=== PATIENT | male | born 2000 | race Caucasian/White ===

== ENCOUNTER 2020-07-13 17:17 | Observation (INO) | payer BC ==
[2020-07-13 17:42] LABS: #Lymphocytes 0.5 thou/uL (1.20-3.40); #Monocytes 0.4 thou/uL (0.11-0.59); #Neutrophils 7.3 thou/uL (1.40-6.50); %Basophils 0.1 % (0.0-1.0); %Eosinophils 0.5 % (0.0-10.0); %Lymphocytes 5.7 % (28.0-48.0); %Monocytes 4.6 % (0.0-4.0); %Neutrophils 89.1 % (31.0-61.0); Hemoglobin 15.8 g/dL (14.0-18.0); Mean Corpuscular HGB CONC 33.7 g/dL (32.0-36.0); Mean Corpuscular Hemoglobin 30.7 pg (25.0-35.0); Platelet Count 196 thou/uL (130-400); RBC Distribution Width 12.6 % (11.5-14.5); Red Blood Cell (RBC) Count 5.15 mill/uL (4.00-5.20); White Blood Cell (WBC) Count 8.2 thou/uL (4.8-10.8)
[2020-07-13 18:07] LABS: ALT (SGPT) 46 U/L (8-55); AST (SGOT) 96 U/L (5-34); Albumin 4.3 g/dL (3.5-5.0); Alkaline Phosphatase 67 U/L (50-130); Anion Gap 16 mmol/L (10-20); BUN (Urea Nitrogen) 21 mg/dL (8.9-20.6); Bilirubin, Total 0.9 mg/dL (0.2-1.2); Calc. Creatinine Clearance 0 mL/min (70-130); Calcium 9.2 mg/dL (7.8-10.44); Carbon Dioxide 17 mmol/L (22-29); Chloride 107 mmol/L (98-107); Globulin 2.8 g/dL (2.4-3.5); Glucose 120 mg/dL (70-105); Magnesium 1.7 mg/dL (1.7-2.2); Potassium 3.7 mmol/L (3.5-5.1); Protein, Total 7.1 g/dL (6.0-8.3); Sodium 136 mmol/L (136-145)
[2020-07-13] MEDS ORDERED: Ondansetron PF 4 MG/2 ML Vial ONE (19:45)
[2020-07-13 21:34] LABS: Troponin I 0.013 ng/mL (< 0.028)
[2020-07-13] MEDS ORDERED: Acetaminophen 500 MG TAB ONE (23:02)
[2020-07-13 23:30] LABS: SARS-CoV-2 NAA Rapid Test Not Detected (NotDetected)
[2020-07-14] MEDS ORDERED: Ondansetron ODT 4 MG TAB SL PRN (00:45)
[2020-07-14] MEDS ORDERED: Ondansetron PF 4 MG/2 ML Vial IVP PRN (00:45)
[2020-07-14] MEDS ORDERED: Sodium Chloride 0.9% 1,000 ML IV SCH (00:45)
== END 2020-07-14 04:25 | disposition short-term general hospital (02) ==
LOC: ERS 17:17 → ERHOLD 07-14 00:04
PROVIDERS: ADMIT Student in an Organized Health Care Education/Training Program; ATTEND Student in an Organized Health Care Education/Training Program
DX: I47.1 Supraventricular tachycardia (principal); R50.9 Fever, unspecified; Z20.822 Contact with and (suspected) exposure to COVID-19
CPT/HCPCS: 0240U; 36415; 71045; 80053; 83735; 84443; 84484; 85025; 87040; 93005; 96374; G0378; J2405